=== PATIENT | male | born 1965 | race Caucasian/White ===

== ENCOUNTER 2019-04-22 20:30 | Emergency (ER) | payer BC ==
[2019-04-22] MEDS ORDERED: Ketorolac 60 MG/2 ML SDV IM ONE (20:49)
[2019-04-22] MEDS: Acetaminophen/HYDROcodone 325-10 MG Tab PO ONE ×2 (20:54→21:16)
[2019-04-22] MEDS ORDERED: Methocarbamol 500 MG Tab ONE (21:00)
[2019-04-22] MEDS ORDERED: Acetaminophen/HYDROcodone 325-5 MG Tab ONE (21:00)
[2019-04-22] MEDS ORDERED: Acetaminophen/HYDROcodone 325-10 MG Tab ONE (21:23)
--- NOTE | 2019-04-22 21:39 | EDM.PDOC ---
ED HPI GENERAL MEDICAL PROBLEM - General Chief Complaint: Flank Pain Stated Complaint: Pain, Left flank Time Seen by Provider: 04/22/19 20:40 Source of Information: Reports: Patient History Limitations: Reports: No Limitations - History of Present Illness INITIAL COMMENTS - FREE TEXT/NARRATIVE: This is a 53yo M here for left side pain. He walked out from his truck and slipped and landed hard on his side with his left arm against his left ribs and noted a snap. He had great difficulty getting up due to the pain and is here for evaluation. Onset: Sudden Duration: Constant Location: Reports: Chest Quality: Reports: Sharp Severity: Severe Improves with: Reports: None Worsens with: Reports: Movement - Related Data Allergies Allergy/AdvReac Type Severity Reaction Status Date / Time No Known Allergies Allergy Verified 04/22/19 20:52 Past Medical History Cardiovascular History: Reports: Hypertension Genitourinary History: Reports: Other (See Below) Other Genitourinary History: kidney stones - Infectious Disease History Infectious Disease History: Reports: Chicken Pox - Past Surgical History GI Surgical History: Reports: Appendectomy Male Surgical History: Reports: Lithotripsy ([facility]) Social & Family History - Tobacco Use Smoking Status *Q: Never Smoker Second Hand Smoke Exposure: No - Caffeine Use Caffeine Use: Reports: Soda - Recreational Drug Use Recreational Drug Use: No ED ROS GENERAL - Review of Systems Review Of Systems: Comprehensive ROS is negative, except as noted in HPI. ED EXAM, GENERAL - Physical Exam Exam: See Below Exam Limited By: No Limitations General Appearance: Alert, WD/WN, Mild Distress Ears: Normal External Exam Nose: Normal Inspection Throat/Mouth: Normal Inspection Head: Atraumatic, Normocephalic Neck: Normal Inspection Respiratory/Chest: No Respiratory Distress, Lungs Clear, Normal Breath Sounds, Other (left rib pain on palpation) Cardiovascular: Normal Peripheral Pulses, Regular Rate, Rhythm Peripheral Pulses: 2+: Dorsalis Pedis (L), Dorsalis Pedis (R) GI/Abdominal: Normal Bowel Sounds Extremities: Normal Inspection Neurological: Alert, Oriented Psychiatric: Normal Affect, Normal Mood Skin Exam: Warm, Dry, Intact Course - Orders/Labs/Meds Orders: Active Orders 24 hr Category Date Time Status Ribs 2V w Chest Lt [CR] Stat Exams 04/22/19 20:48 Taken Meds: Medications Discontinued Medications Generic Name Dose Route Start Last Admin Trade Name Tianna PRN Reason Stop Dose Admin Hydrocodone Bitart/Acetaminophen 1 tab 04/22/19 20:49 04/22/19 21:16 [place] 325-10 Mg PO 04/22/19 20:50 1 tab ONETIME ONE Administration Hydrocodone Bitart/Acetaminophen Confirm 04/22/19 21:23 [place] 325-10 Mg Administered 04/22/19 21:24 Dose 1 tab .ROUTE .STK-MED ONE Ketorolac Tromethamine 60 mg 04/22/19 20:49 04/22/19 20:51 Toradol IM 04/22/19 20:50 60 mg ONETIME ONE Administration Departure - Departure Time of Disposition: 21:15 Disposition: Home, Self-Care 01 Condition: Good Clinical Impression: Closed rib fracture Qualifiers: Encounter type: initial encounter Rib fracture type: single rib Laterality: left Qualified Code(s): S22.32XA - Fracture of one rib, left side, initial encounter for closed fracture - Discharge Information Instructions: Acetaminophen; Hydrocodone tablets or capsules, Rib Fracture, [id number], Methocarbamol tablets Referrals: PCP,None [Primary Care Provider] - Forms: ED Department Discharge Additional Instructions: - Take Monte[place] 325-5 mg 1 tablet every 4-6 hours when needed for pain. - May take Tylenol 500 mg in between but not to exceed a total of 3000 mg in 24 hours. Your Monterey has 325 mg of Tylenol. - Take Methocarbamol 500 mg, 1 tablet every 6-8 hours regularly. - If symptoms worsen may come back at ER. - Problem List & Annotations (1) Closed rib fracture SNOMED Code(s): 65485650 Code(s): S22.39XA - FRACTURE OF ONE RIB, UNSP SIDE, INIT FOR CLOS FX Status : Acute Priority: High Current Visit: Yes Qualifiers: Encounter type: initial encounter Rib fracture type: single rib Laterality: left Qualified Code(s): S22.32XA - Fracture of one rib, left side , initial encounter for closed fracture - Problem List Review Problem List Initiated/Reviewed/Updated: Yes - My Orders Last 24 Hours: My Active Orders 04/22/19 20:48 Ribs 2V w Chest Lt [CR] Stat - Assessment/Plan Last 24 Hours: My Active Orders 04/22/19 20:48 Ribs 2V w Chest Lt [CR] Stat Plan: Counseled on supportive care and conservative management. Discussed pain management with medications and side effects and drowsiness. 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 Discussed f/u as directed for the pain and for further symptoms. Rtc or ER as directed.
--- NOTE | 2019-04-23 11:43 | CR ---
Date of Service: 04/22/19 Clinical Data: fall PA CHEST AND LEFT RIBS: No priors. The heart size is normal. There are minimally displaced fractures of the left 5th, 6th, and 7th ribs anterolaterally. There is adjacent pleural thickening. There are also questionable fractures of the left 3rd and 4th ribs. There is a questionable fracture of the left 10th rib posteriorly. No other rib abnormalities. There are atelectatic changes in the left lung base. The lungs are otherwise clear. No pneumothorax. IMPRESSION: Multiple rib fractures on left with adjacent pleural thickening. Other abnormalities as discussed above. No pneumothorax. [id number] [facility]
== END 2019-04-22 21:31 | disposition home or self-care (01) ==
LOC: LB.ED 20:30
DX: S22.32XA Fracture of one rib, left side, initial encounter for closed fracture (principal); I10 Essential (primary) hypertension; W01.0XXA Fall on same level from slipping, tripping and stumbling without subsequent striking against object, initial encounter
CPT/HCPCS: 71101-LT; 96372; 99284-25; A9270-GY; J1885